=== PATIENT | female | born 1985 ===

== ENCOUNTER 2021-11-30 12:46 | Emergency (ER) | payer SELFPAY ==
[2021-11-30 14:15] LABS: Alanine Aminotransferase 10 units/L (7-56); Albumin 4.2 g/dL (3.9-5); Blood Urea Nitrogen 9 mg/dL (7-17); Calcium 8.9 mg/dL (8.4-10.2); Hemolysis Index 12
[2021-11-30 14:22] LABS: Basophils # (Auto) 0.1 K/mm3 (0.0-0.1); Basophils % (Auto) 0.7 % (0.0-1.8); Eosinophils # (Auto) 0.1 K/mm3 (0.0-0.4); Eosinophils % (Auto) 1.5 % (0.0-4.3); Lymphocytes # (Auto) 2.6 K/mm3 (1.2-5.4); Lymphocytes % (Auto) 25.9 % (13.4-35.0); Mean Corpuscular HGB Conc 29 % (30-34); Monocytes # (Auto) 0.7 K/mm3 (0.0-0.8); Monocytes % (Auto) 7.2 % (0.0-7.3); Platelet Count 414 K/mm3 (140-440); Red Cell Distribution Width 19.9 % (13.2-15.2)
[2021-11-30 14:30] LABS: BUN/Creatinine Ratio 13
[2021-11-30 14:50] LABS: Hematocrit 17.8 % (30.3-42.9); Hemoglobin 5.1 gm/dl (10.1-14.3); Mean Corpuscular Volume 53 fl (79-97)
[2021-11-30] MEDS ORDERED: SODIUM CHLORIDE 0.9% 1000 ML 1,000 ML IV ONE (15:03)
[2021-11-30] MEDS ORDERED: KETOROLAC 30 MG/1 ML INJ IV ONE (16:38)
[2021-11-30] MEDS ORDERED: SODIUM CHLORIDE 0.9% 500 ML 500 ML IV ONE ×2 (16:38→21:35)
--- NOTE | 2021-11-30 16:41 | Emergency Department Report ---
ED Female HPI - General Chief complaint: Vaginal Bleeding Stated complaint: HEADACHE Time Seen by Provider: 11/30/21 16:06 Source: patient Mode of arrival: Ambulatory Limitations: No Limitations - History of Present Illness Initial comments: 36-year-old obese female with no significant past medical history presents to the hospital with heavy vaginal bleeding, headache, and fatigue. Patient has a history of prolonged and heavy menstrual cycles that can last up to 20 days. Patient finished a 7-day cycle 5 days ago and restarted 2 days later. For the past 3 days she has had a frontal headache improved temporarily with medications in addition to fatigue with exertion. 1 episode of vomiting this morning. No abdominal pain reported. She denies requiring a blood transfusion in the past - Related Data Previous Rx's Medication Instructions Recorded Last Taken Type Ferrous Sulfate [Ferrous Sulfate 324 mg PO DAILY #30 tab 11/30/21 Unknown Rx 324 MG] medroxyPROGESTERone ACETATE 10 mg PO QDAY #10 tab 11/30/21 Unknown Rx [Provera] Allergies Allergy/AdvReac Type Severity Reaction Status Date / Time No Known Allergies Allergy Unverified 11/30/21 13:26 ED Review of Systems ROS: Stated complaint: HEADACHE Other details as noted in HPI Comment: All other systems reviewed and negative ED Past Medical Hx - Past Medical History Previous Medical History?: No - Surgical History Past Surgical History?: No - Medications Home Medications: Home Medications Medication Instructions Recorded Confirmed Last Taken Type Ferrous Sulfate [Ferrous Sulfate 324 mg PO DAILY #30 tab 11/30/21 Unknown Rx 324 MG] medroxyPROGESTERone ACETATE 10 mg PO QDAY #10 tab 11/30/21 Unknown Rx [Provera] ED Physical Exam - General Limitations: No Limitations - Other Other exam information: General: No acute distress Head: Atraumatic Eyes: normal appearance ENT: Moist mucous membranes Neck: Normal appearance, no midline tenderness, no nuchal rigidity Chest: Clear to auscultation bilaterally CV: Regular rate and rhythm Abdomen: Soft, normal bowel sounds, nontender, nondistended, no rebound or guarding Back: Normal inspection Extremity: Normal inspection, full range of motion Neuro: Alert O x 3, no facial asymmetry, speech clear, no gross motor sensory deficit Psych: Appropriate behavior Skin: No rash ED Course Vital Signs 11/30/21 11/30/21 11/30/21 13:25 15:51 16:00 Temperature 98.3 F Pulse Rate 73 78 70 Respiratory 18 25 H 24 Rate Blood Pressure 153/75 Blood Pressure 158/90 [Left] O2 Sat by Pulse 99 100 100 Oximetry 11/30/21 11/30/21 11/30/21 16:16 16:30 16:45 Temperature Pulse Rate 74 78 73 Respiratory 20 12 18 Rate Blood Pressure 153/75 153/75 119/47 Blood Pressure [Left] O2 Sat by Pulse 100 100 100 Oximetry 11/30/21 11/30/21 11/30/21 17:00 17:28 17:30 Temperature Pulse Rate 77 74 69 Respiratory 19 17 19 Rate Blood Pressure 153/75 119/47 108/39 Blood Pressure [Left] O2 Sat by Pulse 100 100 100 Oximetry 11/30/21 11/30/21 11/30/21 17:46 18:00 18:15 Temperature 99.0 F 99.0 F Pulse Rate 70 69 71 Respiratory 15 17 18 Rate Blood Pressure 108/39 108/39 127/57 Blood Pressure [Left] O2 Sat by Pulse 100 100 Oximetry 11/30/21 11/30/21 11/30/21 18:16 18:30 18:46 Temperature Pulse Rate 77 78 76 Respiratory 20 18 18 Rate Blood Pressure 136/47 111/38 119/43 Blood Pressure [Left] O2 Sat by Pulse 100 100 100 Oximetry 11/30/21 11/30/21 11/30/21 19:00 19:16 19:30 Temperature Pulse Rate 75 70 77 Respiratory 16 28 H 14 Rate Blood Pressure 109/50 129/57 129/57 Blood Pressure [Left] O2 Sat by Pulse 100 100 100 Oximetry 11/30/21 11/30/21 11/30/21 19:33 19:46 20:00 Temperature 99.1 F Pulse Rate 73 69 Respiratory 13 22 Rate Blood Pressure 119/49 119/49 Blood Pressure [Left] O2 Sat by Pulse 100 100 Oximetry 11/30/21 11/30/21 11/30/21 20:16 20:30 20:46 Temperature Pulse Rate 69 68 67 Respiratory 13 11 L 23 Rate Blood Pressure 114/47 114/47 115/49 Blood Pressure [Left] O2 Sat by Pulse 100 100 100 Oximetry 11/30/21 11/30/21 11/30/21 21:00 21:05 21:16 Temperature Pulse Rate 66 68 66 Respiratory 18 24 14 Rate Blood Pressure 115/49 115/49 112/46 Blood Pressure [Left] O2 Sat by Pulse 100 100 100 Oximetry 11/30/21 11/30/21 11/30/21 21:30 21:32 21:46 Temperature Pulse Rate 77 Respiratory 18 Rate Blood Pressure 112/46 112/46 115/49 Blood Pressure [Left] O2 Sat by Pulse 77 L 77 L 100 Oximetry 11/30/21 11/30/21 11/30/21 22:00 22:15 22:30 Temperature Pulse Rate Respiratory Rate Blood Pressure 115/49 131/54 131/54 Blood Pressure [Left] O2 Sat by Pulse 100 100 100 Oximetry 11/30/21 11/30/21 11/30/21 22:45 23:00 23:16 Temperature Pulse Rate 65 Respiratory 14 Rate Blood Pressure 139/55 123/46 122/56 Blood Pressure [Left] O2 Sat by Pulse 100 99 100 Oximetry 11/30/21 11/30/21 12/01/21 23:30 23:46 00:00 Temperature Pulse Rate 72 68 65 Respiratory 17 14 17 Rate Blood Pressure 122/56 123/55 123/55 Blood Pressure [Left] O2 Sat by Pulse 100 99 100 Oximetry 12/01/21 12/01/21 12/01/21 00:15 00:30 00:46 Temperature Pulse Rate 63 65 62 Respiratory 11 L 14 15 Rate Blood Pressure 102/32 102/32 122/54 Blood Pressure [Left] O2 Sat by Pulse 100 100 99 Oximetry 12/01/21 12/01/21 12/01/21 01:00 01:16 01:30 Temperature Pulse Rate 66 62 62 Respiratory 15 15 12 Rate Blood Pressure 122/54 111/52 111/52 Blood Pressure [Left] O2 Sat by Pulse 99 98 98 Oximetry 12/01/21 12/01/21 12/01/21 01:40 01:50 01:59 Temperature 98.4 F Pulse Rate 59 L 60 Respiratory 23 13 Rate Blood Pressure 111/52 110/54 Blood Pressure [Left] O2 Sat by Pulse 100 100 Oximetry 12/01/21 12/01/21 12/01/21 02:00 02:16 02:30 Temperature Pulse Rate 59 L 56 L 59 L Respiratory 14 15 22 Rate Blood Pressure 110/54 129/74 129/74 Blood Pressure [Left] O2 Sat by Pulse 100 100 98 Oximetry 0812/01/21 12/01/21 02:45 03:00 03:15 Temperature Pulse Rate 61 67 53 L Respiratory 22 14 17 Rate Blood Pressure 126/65 126/65 140/63 Blood Pressure [Left] O2 Sat by Pulse 100 98 100 Oximetry 12/01/21 12/01/21 12/01/21 03:30 03:50 04:00 Temperature Pulse Rate 64 67 65 Respiratory 28 H 20 24 Rate Blood Pressure 129/74 136/61 136/61 Blood Pressure [Left] O2 Sat by Pulse 99 100 100 Oximetry 12/01/21 12/01/21 12/01/21 04:10 04:45 05:15 Temperature Pulse Rate 58 L Respiratory 22 Rate Blood Pressure 136/61 112/56 107/46 Blood Pressure [Left] O2 Sat by Pulse 100 Oximetry 12/01/21 12/01/21 12/01/21 05:44 06:15 06:45 Temperature Pulse Rate Respiratory Rate Blood Pressure 120/62 117/58 118/54 Blood Pressure [Left] O2 Sat by Pulse Oximetry 12/01/21 08:01 Temperature 97.8 F Pulse Rate 90 Respiratory 20 Rate Blood Pressure Blood Pressure 128/74 [Left] O2 Sat by Pulse 98 Oximetry - Reevaluation(s) Reevaluation #1: 11/30/21 23:28 Traffic Technician was used to update patient regarding her status. She required additional unit of blood with a repeat H&H to be performed 2 hours after transfusion complete. She was informed of her ultrasound, CAT scan results, plan for discharge with meds if her H&H is improved. She voiced understanding and addressed any questions using translation service - Consultations Consultation #1: 11/30/21 21: 33 Case discussed with on-call [employer] Dr. Dr. Drake who recommends an additional unit of blood and repeat H&H 2 hours after blood transfusion complete. Once improved H&H is improved patient may follow-up as an outpatient for further work-up and evaluation of pelvic mass/fibroid ED Medical Decision Making - Lab Data Result diagrams: 12/01/21 05:55 11/30/21 13:30 Lab Results 11/30/21 11/30/21 11/30/21 Range/Units 13:30 13:30 13:30 WBC 10.1 (4.5-11.0) K/mm3 RBC 3.40 L (3.65-5.03) M/mm3 Hgb 5.1 L* (10.1-14.3) gm/dl Hct 17.8 L* (30.3-42.9) % MCV 53 L (79-97) fl MCH 15 L (28-32) pg MCHC 29 L (30-34) % RDW 19.9 H (13.2-15.2) % Plt Count 414 (140-440) K/mm3 Lymph % (Auto) 25.9 (13.4-35.0) % Grand % (Auto) 7.2 (0.0-7.3) % Eos % (Auto) 1.5 (0.0-4.3) % Baso % (Auto) 0.7 (0.0-1.8) % Lymph # (Auto) 2.6 (1.2-5.4) K/mm3 Grand # (Auto) 0.7 (0.0-0.8) K/mm3 Eos # (Auto) 0.1 (0.0-0.4) K/mm3 Baso # (Auto) 0.1 (0.0-0.1) K/mm3 Seg Neutrophils % 64.7 (40.0-70.0) % Seg Neutrophils # 6.5 (1.8-7.7) K/mm3 Sodium 134 L (137-145) mmol/L Potassium 4.1 (3.6-5.0) mmol/L Chloride 99.3 (98-107) mmol/L Carbon Dioxide 23 (22-30) mmol/L Anion Gap 16 mmol/L BUN 9 (7-17) mg/dL Creatinine 0.7 (0.6-1.2) mg/dL Estimated GFR > 60 ml/min BUN/Creatinine Ratio 13 % Glucose 92 (65-100) mg/dL Calcium 8.9 (8.4-10.2) mg/dL Total Bilirubin 0.20 (0.1-1.2) mg/dL AST 20 (5-40) units/L ALT 10 (7-56) units/L Alkaline Phosphatase 108 (35-129) units/L Total Protein 7.6 (6.3-8.2) g/dL Albumin 4.2 (3.9-5) g/dL Albumin/Globulin Ratio 1.2 % HCG, Quant < 2 (0-4) mIU/mL Urine Color (Yellow) Urine Turbidity (Clear) Specific [place] (Man) (1.003-1.030) Ur Protein (Man) (Negative) mg/dL Ur Ketones (Man) (Negative) Urine Bilirubin (Man) (Negative) Urine WBC (Auto) (0.0-6.0) /HPF Urine RBC (Auto) (0.0-6.0) /HPF U Epithel Cells (Auto) (0-13.0) /HPF Urine RBC (Manual) (Negative) Urine Mucus /HPF Urine Yeast (Budding) /HPF Blood Type Antibody Screen Crossmatch 11/30/21 11/30/21 12/01/21 Range/Units 13:36 Unknown 05:55 WBC (4.5-11.0) K/mm3 RBC (3.65-5.03) M/mm3 Hgb 7.0 L (10.1-14.3) gm/dl Hct 22.0 L (30.3-42.9) % MCV (79-97) fl MCH (28-32) pg MCHC (30-34) % RDW (13.2-15.2) % Plt Count (140-440) K/mm3 Lymph % (Auto) (13.4-35.0) % Grand % (Auto) (0.0-7.3) % Eos % (Auto) (0.0-4.3) % Baso % (Auto) (0.0-1.8) % Lymph # (Auto) (1.2-5.4) K/mm3 Grand # (Auto) (0.0-0.8) K/mm3 Eos # (Auto) (0.0-0.4) K/mm3 Baso # (Auto) (0.0-0.1) K/mm3 Seg Neutrophils % (40.0-70.0) % Seg Neutrophils # (1.8-7.7) K/mm3 Sodium (137-145) mmol/L Potassium (3.6-5.0) mmol/L Chloride (98-107) mmol/L Carbon Dioxide (22-30) mmol/L Anion Gap mmol/L BUN (7-17) mg/dL Creatinine (0.6-1.2) mg/dL Estimated GFR ml/min BUN/Creatinine Ratio % Glucose (65-100) mg/dL Calcium (8.4-10.2) mg/dL Total Bilirubin (0.1-1.2) mg/dL AST (5-40) units/L ALT (7-56) units/L Alkaline Phosphatase (35-129) units/L Total Protein (6.3-8.2) g/dL Albumin (3.9-5) g/dL Albumin/Globulin Ratio % HCG, Quant (0-4) mIU/mL Urine Color Yellow (Yellow) Urine Turbidity Clear (Clear) Specific [place] (Man) 1.000 L (1.003-1.030) Ur Protein (Man) 1+ (Negative) mg/dL Ur Ketones (Man) Negative (Negative) Urine Bilirubin (Man) Negative (Negative) Urine WBC (Auto) 6.0 (0.0-6.0) /HPF Urine RBC (Auto) 55.0 (0.0-6.0) /HPF U Epithel Cells (Auto) 3.0 (0-13.0) /HPF Urine RBC (Manual) 3+ (Negative) Urine Mucus Few /HPF Urine Yeast (Budding) Few /HPF Blood Type O POSITIVE Antibody Screen Negative Crossmatch See Detail - Radiology Data Radiology results: report reviewed CT HEAD WITHOUT CONTRAST INDICATION / CLINICAL INFORMATION: headache, vomiting. TECHNIQUE: All CT scans at this location are performed using CT dose reduction for ALARA by means of automated exposure control. COMPARISON: None available. FINDINGS: HEMORRHAGE: No evidence of intracranial hemorrhage or extra-axial fluid araceli ection. EXTRA-AXIAL SPACES: Cortical sulci, sylvian fissures and basilar cisterns have an unremarkable appearance. VENTRICULAR SYSTEM: The third and lateral ventricles are of normal size and co nfiguration. CEREBRAL PARENCHYMA: No areas of abnormal brain parenchymal attenuation are identified. There is no indication of recent infarction. MIDLINE SHIFT OR HERNIATION: There is no mass effect. CEREBELLUM / BRAINSTEM: Brainstem and cerebellum have an unremarkable appearance. MIDLINE STRUCTURES:No abnormalities of the pituitary gland or pineal region are identified. INTRACRANIAL VESSELS:No abnormalities are identified on this noncontrast head CT. ORBITS: visualized portions of the orbits have an unremarkable appearance. SOFT TISSUES of HEAD: No significant abnormality. CALVARIUM: Evaluation of bone windows reveals no abnormalities. PARANASAL SINUSES / MASTOID AIR CELLS: Visualized portions of the paranasal sinuses are free from inflammatory mucosal disease. Mastoid air cells are normally pneumatized. IMPRESSION: 1. Normal head CT without contrast. - Medical Decision Making 36-year-old female presents to the hospital with dysfunctional uterine bleeding secondary to uterine fibroid/mass (cannot rule out endometrial cancer). Symptoms of significant anemia include headache, fatigue, and lightheadedness. CT head unremarkable. Patient received morphine and Toradol for pain patient will be transfused with 2 units of PRBC and discharge if H&H is improved. Plan to discharge on Provera and iron tablets. Patient has an appointment with [employer] scheduled for December 12 and will be provided an alternative Doctor to follow-up with here. She was provided a copy of her ultrasound report to take to her follow-up. Copy of labs will also be provided pt signed out to DR Reyes - Differential Diagnosis Anemia, , intracranial hemorrhage, infection Critical Care Time: Yes Critical care time in (mins) excluding proc time.: 40 Critical care attestation.: If time is entered above; I have spent that time in minutes in the direct care of this critically ill patient, excluding procedure time. Critical Care Time: 40 Minutes of critical care time excluding procedures were used in the care of the patient. . I discussed treatment plan with the nursing team members. I reviewed electronic record. Patient required multiple interventions and reassessments including blood transfusion. ED Disposition Clinical Impression: Dysfunctional uterine bleeding, Symptomatic anemia, Uterine fibroid Disposition: HOME / SELF CARE / HOMELESS Is pt being admited?: No Does the pt Need Aspirin: No Condition: Stable Instructions: Uterine Fibroids, Blood Transfusion, Adult, Care After, [id number], Blood Transfusion, Adult, Care After, Dysfunctional Uterine Bleeding Additional Instructions: Take the medication as prescribed. Follow-up your BUSINESS ARCHITECT doctor on December 12 as scheduled or follow-up with a BUSINESS ARCHITECT doctor provided. Return if symptoms worsen as indicated by your discharge instructions. [place] el medicamento segn lo prescrito. Amy un seguimiento con silva dylan giisamar el segn lo programado o con un mdico gineclogo provisto. Regrese si los sntomas empeoran segn lo indicado en las instrucciones de nelida. Prescriptions: Ferrous Sulfate [Ferrous Sulfate 324 MG] 324 mg PO DAILY #30 tab medroxyPROGESTERone ACETATE [Provera] 10 mg PO QDAY #10 tab Referrals: GA LEAVITT MD [Staff Physician] - 3-5 Days (supervisor clam bed ) Print Language: ANDORRAN
--- NOTE | 2021-11-30 17:32 | Cat Scan Report ---
CT HEAD WITHOUT CONTRAST INDICATION / CLINICAL INFORMATION: headache, vomiting. TECHNIQUE: All CT scans at this location are performed using CT dose reduction for ALARA by means of automated e xposure control. COMPARISON: None available. FINDINGS: HEMORRHAGE: No evidence of intracranial hemorrhage or extra-axial fluid collection. EXTRA-AXIAL SPACES: Cortical sulci, sylvian fissures and basilar cisterns have an unremarkable appear ance. VENTRICULAR SYSTEM: The third and lateral ventricles are of normal size and configuration. CEREBRAL PARENCHYMA: No areas of abnormal brain parenchymal attenuation are identified. There is no i ndication of recent infarction. MIDLINE SHIFT OR HERNIATION: There is no mass effect. CEREBELLUM / BRAINSTEM: Brainstem and cerebellum have an unremarkable appearance. MIDLINE STRUCTURES:No abnormalities of the pituitary gland or pineal region are identified. INTRACRANIAL VESSELS:No abnormalities are identified on this noncontrast head CT. ORBITS: visualized portions of the orbits have an unremarkable appearance. SOFT TISSUES of HEAD: No significant abnormality. CALVARIUM: Evaluation of bone windows reveals no abnormalities. PARANASAL SINUSES / MASTOID AIR CELLS: Visualized portions of the paranasal sinuses are free from inf lammatory mucosal disease. Mastoid air cells are normally pneumatized. IMPRESSION: 1. Normal head CT without contrast. Signer Name: Singh Chamberlain MD Signed: 11/30/2021 5:27 PM Workstation Name: [email or web address]
--- NOTE | 2021-11-30 20:43 | Ultrasound Report ---
ULTRASOUND PELVIS INDICATION / CLINICAL INFORMATION: heavy vaginal bleeding. TECHNIQUE: Transabdominal. Duplex Color Doppler used: Yes. COMPARISON: None available FINDINGS: UTERUS: - Appearance: No significant abnormality. - Size (cm): 10.7 x 6.9 x 7.5 - Endometrial Complex (if present): Mass within the endometrial cavity limits accurate measurement of thickness. - Mass or cyst: Mixed echogenicity mass within the endometrial cavity, which measures 4.6 x 3.6 x 4.4 cm. This mass demonstrates vascularity. - Additional findings: None. RIGHT ADNEXA: No significant ovarian cyst or mass. Normal color Doppler blood flow. Right ovary measu res 3.4 x 2.0 x 3.0 cm. LEFT ADNEXA: Ovary not visualized. FREE FLUID: None. ADDITIONAL FINDINGS: None. IMPRESSION: 1. Mixed echogenicity mass within the endometrial cavity, likely intracavitary fibroid. Given intraca vitary location, endometrial malignancy is not excluded and gynecologic consultation is recommended. 2. Nonvisualization of left ovary. Signer Name: Thony Cota MD Signed: 11/30/2021 8:38 PM Workstation Name: [email or web address]
[2021-11-30 20:49] LABS: Mucus,Urine FEW /HPF
[2021-11-30 20:59] LABS: Color,Urine Yellow (Yellow)
[2021-11-30] MEDS ORDERED: ONDANSETRON 4 MG/2 ML INJ IV ONE (22:48)
[2021-11-30] MEDS ORDERED: MORPHINE 4 MG/1 ML INJ IV ONE (22:48)
[2021-12-01 08:03] VITALS: BP 128/74
== END 2021-12-01 08:01 | disposition home or self-care (01) ==
LOC: ED 12:46
DX: N93.9 Abnormal uterine and vaginal bleeding, unspecified (principal); D64.9 Anemia, unspecified; D25.9 Leiomyoma of uterus, unspecified
CPT/HCPCS: 36415; 36430; 70450; 76856; 80053; 81001; 84702; 85014; 85018; 85025; 86850; 86900; 86901; 86920; 96361; 96374; 96375; 99284; J1885; J2270; J2405; J7030; J7040; P9016